=== PATIENT | male | born 1965 | race American Indian/Alaskan Native ===

== ENCOUNTER 2018-06-14 13:49 | Emergency (ER) | payer OTHER ==
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
[2018-06-14 16:41] VITALS: BP 155/95
== END 2018-06-14 18:05 | disposition left against medical advice (07) ==
LOC: EDBD → ED 13:49
DX: M25.512 Pain in left shoulder (principal); M25.562 Pain in left knee; V49.69XA Unspecified car occupant injured in collision with other motor vehicles in traffic accident, initial encounter; Y93.89 Activity, other specified; Y92.89 Other specified places as the place of occurrence of the external cause; Y99.8 Other external cause status
CPT/HCPCS: 99282

== ENCOUNTER 2018-06-14 20:00 | Emergency (ER) | payer OTHER ==
[2018-06-14 22:17] VITALS: BP 163/102
[2018-06-15] MEDS ORDERED: TORADOL IM ONE (00:07)
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
== END 2018-06-15 00:34 | disposition home or self-care (01) ==
LOC: EDBD → ED 20:00
DX: S46.912A Strain of unspecified muscle, fascia and tendon at shoulder and upper arm level, left arm, initial encounter (principal); S86.912A Strain of unspecified muscle(s) and tendon(s) at lower leg level, left leg, initial encounter; V43.52XA Car driver injured in collision with other type car in traffic accident, initial encounter; Y93.89 Activity, other specified; Y92.89 Other specified places as the place of occurrence of the external cause; Y99.8 Other external cause status
CPT/HCPCS: 96372; 99282; J1885

== ENCOUNTER 2019-10-02 06:23 | Outpatient (CLI) | payer OTHER ==
--- NOTE | 2019-10-02 07:53 | XRay Report ---
CHEST 2 VIEWS INDICATION / CLINICAL INFORMATION: CHEST PAIN. COMPARISON: None available. FINDINGS: SUPPORT DEVICES: None. HEART / MEDIASTINUM: The heart size is borderline with a left ventricular configuration. The aorta is mildly tortuous without aneurysm. LUNGS / PLEURA: The lungs are mildly hyperinflated. There is mild bibasilar subsegmental atelectasis. No pneumothorax. ADDITIONAL FINDINGS: No significant additional findings. IMPRESSION: COPD and mild bibasilar atelectasis. Signer Name: James Mcintyre MD Signed: 10/02/2019 7:48 AM Workstation Name: [email or web address]
--- NOTE | 2019-10-02 08:04 | XRay Report ---
ABDOMEN 2 VIEW(S) INDICATION / CLINICAL INFORMATION: Right abdominal pain. COMPARISON: None available. FINDINGS: TUBES / LINES: None. BOWEL GAS PATTERN: There is a moderate amount of stool in the right colon. There is no evidence of golden wel obstruction or mass effect. FREE AIR / EXTRALUMINAL GAS: None seen. ADDITIONAL FINDINGS: No abnormal calcification is seen. There is mild spondylosis. IMPRESSION: No acute abnormality. Signer Name: James Mcintyre MD Signed: 10/02/2019 7:59 AM Workstation Name: [employer]
== END 2019-10-02 06:24 | disposition home or self-care (01) ==
LOC: XRAY 06:23
PROVIDERS: ATTEND Family Medicine
DX: J98.11 Atelectasis (principal); J44.9 Chronic obstructive pulmonary disease, unspecified
CPT/HCPCS: 71046; 74019

== ENCOUNTER 2021-01-07 06:26 | Day surgery (SDC) | payer OTHER ==
--- NOTE | 2021-01-03 09:51 | Anesthesia Consultation ---
Anesthesia Consult and Med Hx Date of service: 01/07/21 - Airway Anesthetic Teeth Evaluation: Good ROM Head & Neck: Adequate Mental/Hyoid Distance: Adequate Mallampati Class: Class II Intubation Access Assessment: Probably Good - Pulmonary Exam CTA: Yes - Cardiac Exam Cardiac Exam: RRR - Pre-Operative Health Status ASA Pre-Surgery Classification: ASA3 Proposed Anesthetic Plan: MAC - Pre-Anesthesia Comment Pre-Anesthesia Comments: GA if chorieform movements persist despite sedation. - Pulmonary Hx Smoking: No Hx Respiratory Symptoms: No - Cardiovascular System Hx Hypertension: Yes Hx Heart Attack/AMI: No Hx Percutaneous Transluminal Coronary Angioplasty (PTCA): No Hx Cardia Arrhythmia: No - Central Nervous System Hx Neuromuscular Disorder: Yes (chorea; no current meds. Denies dysphagia.) CVA: No Hx Psychiatric Problems: Yes (anxiety) - Gastrointestinal Hx Gastroesophageal Reflux Disease: No - Endocrine Hx Renal Disease: No Hx Liver Disease: No Hx Insulin Dependent Diabetes: No Hx Non-Insulin Dependent Diabetes: No Hx Thyroid Disease: No - Other Systems Hx Obesity: Yes (BMI 33) - Additional Comments Anesthesia Medical History Comments: No hx anesthetic complications. BP elevated in pre-assessment. Patient asymptomatic. States he went to the gym before coming to pre-assessment. States that he is compliant with antihypertensives, checks his BP at home daily and that it is variable but usually ranges 140s/80s-90s. Instructed to take BP meds morning of surgery.
[2021-01-03 10:01] LABS: Hematocrit 44.7 % (35.5-45.6); Hemoglobin 14.1 gm/dl (11.8-15.2); Mean Corpuscular HGB Conc 32 % (32-34); Mean Corpuscular Volume 71 fl (84-94); Platelet Count 133 K/mm3 (140-440); Red Blood Count 6.28 M/mm3 (3.65-5.03); Red Cell Distribution Width 16.2 % (13.2-15.2)
[2021-01-03 10:22] LABS: Alanine Aminotransferase 16 units/L (7-56); Albumin 3.7 g/dL (3.9-5); BUN/Creatinine Ratio 19; Blood Urea Nitrogen 15 mg/dL (9-20); Hemolysis Index 0
[~2021-01-07 06:26] MED LIST: LACTATED RINGERS 1,000 ML IV SCH
[2021-01-07] MEDS ORDERED: BACTERIOSTATIC SODIUM CHLORIDE 0.9% 30 ML VIAL INFILTRATI ONE (06:28)
[2021-01-07] MEDS ORDERED: ceFAZolin/STERILE WATER 2 GM/20 ML SYRINGE IV NR (07:00)
[2021-01-07] MEDS ORDERED: LIDOCAINE (1%) 10 MG/1 ML VIAL 20 ML MDV ONE (07:04)
[2021-01-07] MEDS ORDERED: BUPIVACAINE/PF (0.5%) 5 MG/1 ML 30 ML VIAL INFILTRATI ONE ×3 (07:05→07:58)
[2021-01-07] MEDS ORDERED: HYDROmorphone 1 MG/1 ML INJ IV PRN ×2 (07:06)
[2021-01-07] MEDS ORDERED: ONDANSETRON 4 MG/2 ML INJ IV PRN (07:06)
--- NOTE | 2021-01-07 07:07 | Anesthesia Day of Surgery ---
Anesthesia Day of Surgery - Day of Surgery Patient Examined: Yes Patient H&P Reviewed: Yes Patient is NPO: Yes
[2021-01-07] MEDS ORDERED: MIDAZOLAM 2 MG/2 ML INJ IV NR (07:09)
[2021-01-07] MEDS ORDERED: LIDOCAINE PF 100 MG/5 ML (CARDIAC SYRINGE) IV ONE (07:11)
[2021-01-07] MEDS ORDERED: fentaNYL 100 MCG/2 ML INJ ONE (07:11)
[2021-01-07] MEDS ORDERED: propofoL 200 MG/20 ML VIAL IV ONE ×2 (07:11→07:34)
[2021-01-07] MEDS ORDERED: SODIUM CHLORIDE 0.9% 100 ML ONE (07:15)
[2021-01-07] MEDS ORDERED: LIDOCAINE (1%) 10 MG/1 ML VIAL 20 ML MDV INFILTRATI ONE ×2 (07:57)
[2021-01-07] MEDS ORDERED: SODIUM CHLORIDE 0.9% IRR 1,500 ML BOTTLE IR ONE (07:58)
--- NOTE | 2021-01-07 08:21 | Short Stay Summary ---
Short Stay Documentation Date of service: 01/07/21 - History Principal diagnosis: soft tissue mass left upper back H&P: obtained from office - Allergies and Medications Current Medications: Allergies No Known Allergies Allergy (Unverified 06/14/18 14:20) Home Medications Medication Instructions Recorded Confirmed Last Taken Type Ascorbic Acid [Vitamin C] 500 mg PO DAILY 01/01/21 01/01/21 Unknown History Dexasporin 1 drop OU PRN 01/01/21 Unknown History Doxazosin 8 mg PO DAILY 01/01/21 01/01/21 Unknown History Echinacea 1 cap PO DAILY 01/01/21 01/01/21 Unknown History Multivit-Min/Iron/Folic Acid/K 1 tab PO DAILY 01/01/21 01/01/21 Unknown History [Adults Multivitamin Tablet] NIFEdipine [Adalat cc] 30 mg PO DAILY 01/01/21 01/01/21 Unknown History Vitamin D3 10 mg PO DAILY 01/01/21 01/01/21 Unknown History Active Medications Cefazolin Sodium (Cefazolin/Sterile Water 2 Gm/20 Ml Syringe) 2 gm IV PREOP NR Stop: 01/07/21 20:00 Hydromorphone HCl (Hydromorphone 1 Mg/1 Ml Inj) 0.25 mg IV Q10MIN PRN PRN Reason: Pain, Moderate (4-6) Stop: 01/07/21 23:00 Hydromorphone HCl (Hydromorphone 1 Mg/1 Ml Inj) 0.5 mg IV Q10MIN PRN PRN Reason: Pain , Severe (7-10) Stop: 01/07/21 23:00 Lactated Ringer's (Lactated Ringers) 1,000 mls @ 100 mls/hr IV DIRECT SEB Stop: 01/07/21 23:59 Midazolam HCl (Midazolam 2 Mg/2 Ml Inj) 2 mg IV ONCE NR Stop: 01/07/21 23:00 Ondansetron HCl (Ondansetron 4 Mg/2 Ml Inj) 4 mg IV ONCE PRN PRN Reason: Nausea And Vomiting Stop: 01/07/21 23:00 - Brief post op/procedure progress note Date of procedure: 01/07/21 Pre-op diagnosis: soft tissue mass left upper back Post-op diagnosis: same Procedure: excision soft tissue mass of left upper back Anesthesia: MAC, local Findings: 3 cm (in aggregate) soft tissue mass, lobulated, friable - lipoma Surgeon: JUNIOR MCKENZIE Estimated blood loss: minimal Pathology: list (soft tissue mass left upper back) Specimen disposition: to lab Condition: stable - Hospital course Hospital course: Pt observed in PACU and discharged to home in stable condition when criteria met - Disposition Condition at discharge: Good Short Stay Discharge Plan Activity: no restrictions Diet: regular Wound: open to air (May shower tomorrow, pat incision dry and do not scrub or rub off glue. Glue will fall off on its own. Do not submerge incision in hottub/pool/bath for 2 weeks) Additional Instructions: Take over the counter pain medication such as tylenol or ibuprofen as needed. You may also apply an ice pack to the area as needed for the next 2-3 days. If your pain is not controlled with over the counter pain medications, you have been given a prescription for a stronger medication called Tramadol. Follow up with: KENNEDY DOBBS JR, MD [Primary Care Provider] - 7 Days JUNIOR MCKENZIE DO [Staff Physician] - 14 Days Prescriptions: traMADoL [Ultram 50 MG tab] 50 mg PO Q6HR PRN #10 tablet PRN Reason: Pain , Severe (7-10)
[2021-01-07 09:29] VITALS: BP 144/92
--- NOTE | 2021-01-07 15:24 | Post Anesthesia Evaluation ---
- Post Anesthesia Evaluation Patient Participated: Yes Airway Patent: Yes Stable Respiratory Function: Yes Nausea/Vomiting: No Temp > 96.8F: Yes Pain Manageable: Yes Adequeate Hydration: Yes Anesthesia Complications: No Block Receding Appropriately: Not Applicable Patient on Ventilator: No
--- NOTE | 2021-01-08 11:27 | Operative Report ---
Operative Report Operative Report: Date of procedure: 01/07/21 Pre-op diagnosis: soft tissue mass left upper back Post-op diagnosis: same Procedure: excision soft tissue mass of left upper back Anesthesia: MAC, local Findings: 3 cm (in aggregate) soft tissue mass, lobulated, friable - lipoma Surgeon: JUNIOR MCKENZIE Estimated blood loss: minimal Pathology: list (soft tissue mass left upper back) Specimen disposition: to lab Condition: stable Hospital course: Pt observed in PACU and discharged to home in stable condition when criteria met Condition at discharge: Good HPI and indication: Patient is a 55-year-old male who was referred to the surgery clinic for evaluation of a soft tissue mass of his left upper back. The patient was symptomatic from the mass and therefore was recommended that it be excised. All risk and benefit, alternatives surgery were discussed with patient questions answered. Consent was obtained in the office and patient is scheduled for surgery in the operating room. Procedure in detail: The patient was identified in the preoperative area and the area of the mass marked. He was then taken back to the operating room and placed on the operating room table in supine position. After anesthesia was induced he was placed in lateral decubitus position with the left side up. All bony prominences were padded appropriately and she was supported with pillows. The left upper back was prepped and draped in usual sterile fashion and a timeout was performed. Local anesthetic was infiltrated into the skin and subcutaneous tissue at the intended incision site. A horizontal incision was made over the area of the palpable soft tissue mass using 15 blade. Dissection was carried down through skin and subcutaneous tissue using electrocautery until the mass was identified. Mass was circumferentially dissected free from surrounding tissue using combination of blunt dissection with a hemostat as well as electrocautery. Mass appeared fatty and lobulated and was consistent with a lipoma. Once it was circumferentially dissected free it was removed from the wound and passed off the table as a specimen. It measured 3 cm in aggregate as it was removed in several pieces. The wound was then checked for hemostasis which was very carefully ensured. The wound was irrigated. The wound was then closed in layered fashion with a deep dermal layer closed with interrupted 2-0 Vicryl stitches. The skin was approximated using 4-0 Monocryl subcuticular running stitch and skin glue. At the end of the case, all sponge, instrument, sharp counts were correct x2. Patient was awoken from anesthesia and taken to PACU in stable condition.
== END 2021-01-07 06:27 | disposition home or self-care (01) ==
LOC: OR 06:26
PROVIDERS: ATTEND Surgery
DX: R22.2 Localized swelling, mass and lump, trunk (principal); D17.1 Benign lipomatous neoplasm of skin and subcutaneous tissue of trunk; I10 Essential (primary) hypertension; E66.9 Obesity, unspecified; M19.90 Unspecified osteoarthritis, unspecified site; F41.9 Anxiety disorder, unspecified; D64.9 Anemia, unspecified; Z20.822 Contact with and (suspected) exposure to COVID-19; Z79.899 Other long term (current) drug therapy; Z72.89 Other problems related to lifestyle; Z98.890 Other specified postprocedural states; Z68.33 Body mass index [BMI] 33.0-33.9, adult
CPT/HCPCS: 21931; 36415; 80053; 85027; 88307; J0690; J2001; J2250; J2704; J3010; J7120; U0003